=== PATIENT | female | born 1960 | race Caucasian/White ===

== ENCOUNTER 2022-04-24 09:47 | Outpatient (CLI) | payer OTHER, SELFPAY ==
[2022-04-24 12:28] LABS: Albumin* 4.5 g/dL (3.3-5.0); Chloride* 103 mmol/L (96-114); Sodium* 139 mmol/L (135-149)
[2022-04-24 12:29] LABS: Potassium* 4.1 mmol/L (3.6-5.1)
[2022-04-24 12:31] LABS: Alanine Aminotransferase* 30 U/L (4-35); Alkaline Phosphatase* 84 U/L (40-150); Aspartate Amino Transferase* 44 U/L (12-35); Bilirubin Total* 0.7 mg/dL (0.1-1.5); Blood Urea Nitrogen* 18 mg/dL (7-30); Carbon Dioxide* 28 mmol/L (20-32); Creatinine* 0.7 mg/dL (0.5-1.5); Estimated Glomerular Filt Rate 100 ml/min; Glucose* 105 mg/dL (60-115); Total Protein* 7.5 g/dL (6.0-8.3)
[2022-04-24 12:32] LABS: Calcium* 9.7 mg/dL (8.4-10.6)
== END 2022-04-24 09:48 | disposition home or self-care (01) ==
PROVIDERS: PCP Internal Medicine; Visit Provider Internal Medicine
DX: Z01.818 Encounter for other preprocedural examination (principal)
CPT/HCPCS: 80053

== ENCOUNTER 2022-05-07 09:14 | Day surgery (SDC) | payer OTHER, SELFPAY ==
[2022-05-07] VITALS (16 sets, daily range): BP systolic 105–139; BP diastolic 56–84; PULSE 56–86; RESP 12–16; TEMP 35–36.6; O2SAT 92–99; BMI 32.3
[2022-05-07] MEDS: LACTATED RINGERS 1000 ML 1,000 ML 100 ML IV (10:00)
[2022-05-07] MEDS: ETHYL CHLORIDE 1 APPLICATION 1 APPLIC TOPICAL (10:00)
[2022-05-07] MEDS: SODIUM CHLORIDE 0.9 % (FLUSH) 10 ML SYRINGE IVF (10:12)
[2022-05-07] MEDS: SCOPOLAMINE 1 MG/3 DAY PATCH 1 PATCH TRANSDERMA (10:15)
[2022-05-07] MEDS: CELECOXIB 200 MG CAPSULE PO ×2 (11:30→20:09)
[2022-05-07] MEDS: ACETAMINOPHEN 500 MG TABLET 1000 MG PO ×3 (11:30→23:06)
[2022-05-07] MEDS: MIDAZOLAM HCL 1 MG/ML inj IVP (11:35)
[2022-05-07] MEDS: fentaNYL 100 MCG/2 ML inj IVP (11:35)
--- NOTE | 2022-05-07 11:41 | P.NB_ITS ---
Nerve Block Nerve Block Time Seen by Provider: 11:41 Date Seen: 05/07/22 Type of block requested by surgeon for post-operative analgesia: adductor canal Side: right Time out performed: Yes Verification of patient name: Yes Verification of date of : Yes Site marking: site marked Name of person performing procedure: Sameer Continuous monitoring Was continuous monitoring of O2 sat, B/P, surveillance system monitor, recorded every 15 minutes?: Yes Procedure Checklist: sterile prep, needles and gloves Ultrasound guided. Images saved: Yes Medications given in 5ml increments after negative aspiration: Ropivicaine %: 0.5 mL: 20 Needle gauge: 22 Decadron (mg): 10 Precedex (mcg): 25 Patient tolerated procedure well: Yes Additional comments: Needle noted adjacent to nerve Block Charges Block Charge (with Pro Fee): Femoral Nerve Use of Ultrasound Machine for Block: Yes- US Guidance/pain block
--- NOTE | 2022-05-07 11:42 | P.NB_ITS ---
Nerve Block Nerve Block Time Seen by Provider: 11:42 Date Seen: 05/07/22 Type of block requested by surgeon for post-operative analgesia: geniculars Side: right Time out performed: Yes Verification of patient name: Yes Verification of date of : Yes Site marking: site marked Name of person performing procedure: Sameer Continuous monitoring Was continuous monitoring of O2 sat, B/P, food service counter clerk, recorded every 15 minutes?: Yes Procedure Checklist: sterile prep, needles and gloves Medications given in 5ml increments after negative aspiration: Ropivicaine %: 0.5 mL: 9 Needle gauge: 25 Patient tolerated procedure well: Yes Block Charges Block Charge (with Pro Fee): Genicular Nerve Block Use of Ultrasound Machine for Block: No
--- NOTE | 2022-05-07 11:42 | SUR.PREOP ---
TIME?OUT:?1132, right knee PT/RN/MDA?VERIFICATION?OF?SURGICAL?SITE,?PROCEDURE,?AND?CONSENT OBTAINED?PRIOR?TO?INVASIVE?PROCEDURE.
[2022-05-07] MEDS: CEFAZOLIN 2 GM INJ IVP (12:30)
[2022-05-07] MEDS: TRANEXAMIC ACID 100 MG/ML INJ 1000 MG IV (12:30)
--- NOTE | 2022-05-07 13:53 | CRLHL7_ITS ---
For Patients: As a result of the Century Cures Act, medical imaging exams and procedure reports are released immediately into your electronic medical record. You may view this report before your referring provider. If you have questions, please contact your health care provider. Indication: Status post total knee arthroplasty. Technique: Two views. Comparison: Knee radiograph 04/04/2022. Findings/Impression: Status post total knee arthroplasty. Prosthesis components are well aligned. No fracture. Subcutaneous gas. No radiopaque foreign body. Dictated by Sergey Hall MD @ 05/07/2022 9:27:22 PM (Electronically Signed)
--- NOTE | 2022-05-07 13:56 | PM.ORPRC ---
Procedure Note Date of procedure: 05/07/22 Procedure: SURGEON: Yves Vee MD [employer] INSTRUMENTS: Frieda Dukes PA-C PREOPERATIVE DIAGNOSIS: Right knee osteoarthritis POSTOPERATIVE DIAGNOSIS: Right knee osteoarthritis NAME OF OPERATION: Right total knee arthroplasty ANESTHESIA: Spinal ESTIMATED BLOOD LOSS: 0 mL COMPLICATIONS: None SPECIMENS: None DRAINS: None PREOPERATIVE ANTIBIOTICS: Ancef 2 grams IMPLANTS: 1. J&J Attune # 4 posterior stabilized femur 2. # 3 fixed-bearing tibia 3. # 4 posterior stabilized, 5 mm fixed-bearing polyethylene 4. 35 patella INDICATIONS: The patient is a 61-year-old female with a longstanding history of severe, unrelenting right knee pain secondary to end-stage (grade IV) right knee osteoarthritis. Despite appropriate nonoperative management, including activity modification, anti-inflammatories, [id number] pain medication, bracing, physical therapy, and injections they continue to have pain and disability. Operative intervention was offered. The risks, benefits and expected outcomes were discussed in detail. These included but were not limited to: Infection, bleeding, injury to blood vessel or nerve, venous thromboembolism. All questions were answered to their satisfaction. Use of an clerical dentist assistant was necessary throughout the case for patient positioning and safety, soft tissue retraction, and closure. PROCEDURE: Spinal anesthesia was administered. The patient was placed supine on the operating table. The clerical dentist assistant made sure the patient was positioned appropriately. The lower extremity was prepped and draped in the usual sterile fashion. The limb was exsanguinated with the Jarrett bandage. The pneumatic tourniquet was inflated to 300 mmHg. A standard anterior incision was made with the knee in flexion. Subcutaneous dissection was sharply taken through fascial layer #1. Full-thickness medial and lateral flaps were elevated. The clerical dentist assistant retracted the soft tissues and protected them throughout the case. A standard medial parapatellar approach was made. The patella was everted. The infrapatellar fat pad was preserved. The menisci and cruciate ligaments were sharply d?brided. Marginal osteophytes were d?brided with the rongeur. The drill was used to penetrate the femoral canal. The canal was aspirated and irrigated with pulse lavage. The intramedullary femoral guide was placed for a 5-degree valgus cut, removing 10 mm off the distal femur. The saw was used to make the cut. Whitesides line and the trans epicondylar axis were marked. The femoral sizing guide was pinned onto the distal femur. Three degrees of external rotation nicely parallels the transepicondylar axis. Pins were placed for posterior referencing. The four-in-one cutting guide was pinned onto the distal femur. The anterior, posterior, and chamfer cuts were made. The clerical dentist assistant protected the collateral ligaments. The box cutting guide was pinned. The box cuts were made. The boxed trial was placed and was an excellent fit. Drill holes for the lugs were made. Attention was then turned to the proximal tibia. The extramedullary tibial guide was placed for a neutral varus/valgus cut with 5 degrees of posterior slope, removing 4 mm based off the medial tibial surface. The clerical dentist assistant protected the collateral ligaments and the neurovascular bundle. The saw was used to make the cut. Trial components were placed. The knee was nicely balanced in both flexion and extension. Rotation of the tibial component was matched to the femur in full extension, matched to our tibial cutting pins, and marked with cautery. The trial components were removed. The tray was pinned by the clerical dentist assistant and the drill and the punch were used. The tray was removed. The punch was used again. We placed a bone plug in the femoral canal. Attention was then turned to the patella. [place] patellar thickness was 21 mm. The lobster claw resection guide was used with the 7.5 mm silvia. The saw was used to make the cut. Drill holes were made by the clerical dentist assistant. The trial was placed and was an excellent fit. Cancellous surfaces were irrigated with pulse lavage and thoroughly dried by the clerical dentist assistant. We cemented the tibial component, then the femoral component. A trial spacer was placed. The knee was brought into full extension. We then cemented the patellar component. Excessive cement was removed. The cement was allowed to harden. Any remaining excessive cement was removed with the osteotome. We impacted the 5 mm polyethylene onto the tibial tray. The knee was taken through a range of motion and was found to be nicely balanced in both flexion and extension. The patella tracks centrally. The clerical dentist assistant did a three minute dilute Betadine solution soak. The clerical dentist assistant irrigated the wound with 3 liters of normal saline via pulse lavage. The clerical dentist assistant reapproximated the extensor mechanism with #1 Vicryl in an interrupted [id number] fashion. The clerical dentist assistant then ran the extensor mechanism with a #1 PDO Stratafix. The clerical dentist assistant closed the subcutaneous tissues with a 3-0 Stratafix and the skin with a running 3-0 Stratafix in a subcuticular fashion. Glue was used to seal the skin. The clerical dentist assistant placed a dry dressing, FANNIE stocking, and Polar Care. Sponge and needle counts were correct x2. The patient tolerated the procedure well. There were no apparent complications. They were carefully transferred to the hospital bed and taken to the postanesthesia care unit in satisfactory condition. PLAN: The patient will be mobilized with physical therapy. Aspirin will be used for DVT prophylaxis. They will be discharged to home once medically appropriate.
--- NOTE | 2022-05-07 14:46 | W.ANESCHARGE ---
Anesthesia Charges Start Date/Time Anesthesia Start Date: 05/07/22 Anesthesia Start Time: 12:19 Stop Date/Time Anesthesia Stop Date: 05/07/22 Anesthesia Stop Time: 14:45 Summary Emergency: No
--- NOTE | 2022-05-07 15:07 | W.ANESCHARGE ---
Anesthesia Charges Start Date/Time Anesthesia Start Date: 05/07/22 Anesthesia Start Time: 12:19 Stop Date/Time Anesthesia Stop Date: 05/07/22 Anesthesia Stop Time: 14:45 Summary Emergency: No
[2022-05-07] MEDS: CEFAZOLIN 2 GM in 0.9 % SODIUM CHLORIDE Mini-bag 100 ML IVPB (18:33)
--- NOTE | 2022-05-07 18:46 | P.IMCN_ITS ---
Date of Consult Consult date: 05/07/22 Primary Care Provider: Keiry Myers MD Consult Narrative Reason for consult: Narrative: HOSPITALIST CONSULT Hospital Day # 1 Postop Day #0 NAME OF OPERATION: Right total knee arthroplasty ANESTHESIA: Spinal ESTIMATED BLOOD LOSS: 0 mL COMPLICATIONS: None SPECIMENS: None DRAINS: None The hospital medicine team was asked by orthopedic surgery team to manage the patient's chronic pain PAST MEDICAL HISTORY: Chronic low back pain History of gestational diabetes MEDICATIONS: Albuterol p.r.n. Calcium and vitamin-D Multivitamin Turmeric ALLERGIES: Erythromycin, codeine SURGICAL HISTORY: Basal cell carcinoma excision History of hip surgery 2017 History of tonsillectomy History of total left knee replacement, 03/27/2016 FAMILY HISTORY: Reviewed in EMR HABITS: Distant social smoker Wine 2 to 4 times a month SOCIAL HISTORY: Works as an occupational therapist on our team REVIEW OF SYSTEMS: 12-point ROS completed with patient and negative unless otherwise stated in HPI or below. PHYSICAL EXAM: CODE STATUS: Full code CONSTITUTIONAL: Conversive, good historian. A/O. Knows setting and context. VITAL SIGNS: see record. HEENT: Normocephalic, atraumatic. PERRL, EOMI, conjunctivae pink, no scleral icterus. Ears and nose externally normal. Pharynx normal. NECK: No JVD. No carotid bruit, no thyromegaly, no adenopathy. CHEST: Clear to auscultation bilaterally HEART: No harsh murmurs. S1/S2. ABDOMEN: Flat, soft, nontender. Normal bowel sounds. Moderately obese. EXTREMITIES: No edema. MUSCULOSKELETAL: Right knee surgical dressing intact without seepage. Distal right extremity without footdrop. NEURO: Cranial nerves intact. Normal affect. No gross deficits. Speech intelligible. SKIN: No rashes, petechiae, concerning changes PSYCHIATRIC: Euthymic. INVESTIGATIONS: EMR Reviewed DISPOSITION: DVT: GI: PO intake [facility] Medical History (Updated 04/24/22 @ 09:41 by Keiry Myers MD) History of gestational diabetes mellitus (GDM) (04/25/10) Surgical History (Updated 05/07/22 @ 19:24 by Loan Perkins MD) Basal cell carcinoma (BCC) (~2012) History of hip surgery (02/05/17) History of tonsillectomy History of total left knee replacement (03/27/16) Status post total right knee replacement Family History (Updated 04/19/22 @ 15:28 by Uyen Varner RN) Mother Diabetes High blood pressure Skin cancer Father Skin cancer High blood pressure Brother Meniere disease Maternal Grandfather Stroke Social History Smoking Status: Former smoker What tobacco products do you use: cigarettes Smoking quit date/years: >15 years ago Do you use any of these nicotine containing products: None Second hand tobacco smoke exposure: No How often do you have a drink containing alcohol: 2-4 times a month Alcohol type: wine How many standard drinks containing alcohol do you have on a typical day: 1 or 2 How often do you have six or more drinks on one occasion: Never AUDIT-C Alcohol total score: 2 Non-prescribed substance use: denies use Meds Home Medications and Allergies Home Medications Medication Instructions Recorded Confirmed Type albuterol sulfate 90 mcg/actuation 2 puff inhalation Q6H PRN 04/02/22 05/07/22 History aerosol inhaler (Ventolin HFA) calcium carb-vit D3-magnesium 250 1 cap PO QDAY 04/02/22 05/07/22 History mg-200 unit-125 mg capsule multivitamin 1 tab PO QDAY 04/02/22 05/07/22 History turmeric 400 mg capsule 400 mg PO DAILY 04/24/22 05/07/22 History Allergies Allergy/AdvReac Type Severity Reaction Status Date / Time erythromycin base AdvReac Severe Gastrointestinal Verified 05/07/22 09:27 Upset codeine AdvReac Intermediate Nausea Verified 05/07/22 09:27 Exam Const: Vital Signs, click to edit/add: Vital Signs - 24 hr 05/07/22 09:49 05/07/22 11:35 05/07/22 11:45 Temperature 97.8 F 97.8 F Pulse Rate 64 56 L 62 Respiratory Rate 16 16 16 Blood Pressure 136/77 139/58 L 119/56 L Blood Pressure [Ri ght Arm] Pulse Oximetry 99 99 98 Oxygen Delivery Me thod Room Air Nasal Cannula Nasal Cannula Oxygen Flow Rate 3 3 05/07/22 14:42 05/07/22 14:45 05/07/22 14:50 Temperature 96.8 F L Pulse Rate 72 68 64 Respiratory Rate 14 12 16 Blood Pressure 108/67 105/65 112/72 Blood Pressure [Ri ght Arm] Pulse Oximetry 92 93 93 Oxygen Delivery Me thod Room Air Room Air Room Air Oxygen Flow Rate 05/07/22 14:55 05/07/22 15:00 05/07/22 15:05 Temperature Pulse Rate 66 64 60 Respiratory Rate 12 14 14 Blood Pressure 117/76 123/78 120/78 Blood Pressure [Ri ght Arm] Pulse Oximetry 94 96 97 Oxygen Delivery Me thod Room Air Room Air Room Air Oxygen Flow Rate 05/07/22 15:10 05/07/22 15:15 05/07/22 15:25 Temperature 97 F L 95 F L Pulse Rate 58 L 62 60 Respiratory Rate 16 15 14 Blood Pressure 125/72 129/73 Blood Pressure [Ri ght Arm] 130/80 Pulse Oximetry 97 98 Oxygen Delivery Me thod Room Air Room Air Room Air Oxygen Flow Rate 0 Assessment and Plan Assessment and plan (1) Status post total right knee replacement: Status: Acute Assessment and Plan: Hospital medicine team is happy to follow this patient through to discharge. I reviewed her medications advised on these. I expect a benign postoperative course and have appreciated no perioperative concerns or complications thus far (2) Chronic low back pain: Problem comment: Chronic, lumbar pain Status: Acute Assessment and Plan:
[2022-05-07] MEDS: LACTATED RINGERS 1000 ML 1,000 ML 75 ML IV (19:35)
[2022-05-07] MEDS: OXYCODONE 5 MG TABLET PO ×2 (19:35→23:05)
--- NOTE | 2022-05-07 20:06 | PC.NURSE ---
Patient up to floor at 1525 awake and alert. numb upon arrival. Dahlia Hugger applied at 1530 due to temp 95.0- removed at 1700 with 96.9 temp when up to chair. Vitals stable. Pt meeting post op goals - pt has voided x2. up to BSC, transferred to chair with Ax1. Tolerating regular diet and taking oral meds. 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 Chaim at bedside and supportive. TEDS on, Plexi's. surgical incision CDI. LS CTA. Pt to work on IS independently.
[2022-05-07] MEDS: ASPIRIN 81 MG TABLET EC PO (20:09)
[2022-05-07] MEDS: SENNOSIDES 1 TAB TABLET 2 TAB PO (20:09)
[2022-05-08 02:00] VITALS: BP 116/59; PULSE 71; RESP 14; TEMP 36; O2SAT 95
[2022-05-08] MEDS: OXYCODONE 5 MG TABLET PO ×3 (02:10→10:26)
[2022-05-08] MEDS: CEFAZOLIN 2 GM in 0.9 % SODIUM CHLORIDE Mini-bag 100 ML IVPB ×2 (02:10→09:50)
[2022-05-08] MEDS: ACETAMINOPHEN 500 MG TABLET 1000 MG PO (05:25)
[2022-05-08] MEDS: LACTATED RINGERS 1000 ML 1,000 ML 75 ML IV (06:03)
--- NOTE | 2022-05-08 06:05 | PC.NURSE ---
Alert and oriented x4. Vitals stable overnight. Right knee pain pain managed with Oxycodone. Dressing CDI. Ambulates fine to the bathroom with assist of one. Voiding fine and denies any concerns. Will continue to monitor and assess
[2022-05-08 07:19] LABS: Basophils Percent Auto 0.1 % (0.0-3.0); Hematocrit 40.5 % (33.0-51.0); Hemoglobin* 13.3 gm/dL (12.0-16.0); Immature Granulocytes Abs Auto 0.02 K/uL (0.00-0.30); Lymphocytes Percent Auto 10.5 % (20-44); Mean Corpuscular HGB Conc 33 gm/dL (32-36); Mean Corpuscular Hemoglobin 31 pg (26-34); Mean Corpuscular Volume 94 fL (80-100); Monocytes Percent Auto 6.8 % (0.0-11.0); Neutrophils Percent Auto 82.5 % (42.0-72.0); Platelet Count* 337 K/uL (140-440); RDW Coefficient of Variation % 13.6 % (11.5-15.5); Red Blood Count 4.29 m/uL (4.00-5.20); White Blood Count* 14.46 K/uL (4.50-11.00)
[2022-05-08 07:23] LABS: Slide Review Reflex No
[2022-05-08 07:31] LABS: Potassium* 4.3 mmol/L (3.6-5.1)
[2022-05-08 07:34] LABS: Blood Urea Nitrogen* 16 mg/dL (7-30); Creatinine* 0.7 mg/dL (0.5-1.5); Est. Creatinine Clearance* 77.87; Estimated Glomerular Filt Rate 100 ml/min
[2022-05-08 07:35] LABS: INR 0.91 (0.91-1.10); Prothrombin Time 12.7 Seconds
[2022-05-08 07:43] VITALS: BP 122/71; PULSE 60; RESP 16; TEMP 36.1; O2SAT 99
--- NOTE | 2022-05-08 07:56 | REH.OT ---
OT: Orders received, however pt declining the need for OT services per nsg and prior to surgery. Pt is an OT, has had prior TKA and familiar with post op protocol and DME needs. Will discontinue order.
[2022-05-08] MEDS: ASPIRIN 81 MG TABLET EC PO (07:57)
[2022-05-08] MEDS: SENNOSIDES 1 TAB TABLET 2 TAB PO (07:57)
[2022-05-08] MEDS: CELECOXIB 200 MG CAPSULE PO (07:58)
--- NOTE | 2022-05-08 08:20 | PM.ORPN ---
Subjective Subjective Time Seen by Provider: 08:00 Date Seen: 05/08/22 Principal diagnosis: Status post right knee replacement Interval history: Francheska is comfortable this morning. She got little rest last night. She does not have nausea or vomiting. She is planning to discharge to home today. Ortho Exam Narrative Exam Narrative: Alert and oriented x3. Patient is in no acute distress. Converses without labored breathing. Hearing is grossly intact. Right knee dressing is clean, dry, and intact. Mild effusion. Mild soft tissue edema about the right knee. No erythema or ecchymosis. No sign of infection. Bilateral calves are soft and nontender. 5/5 quad strength. CMS intact right lower extremity. Const Vital Signs, click to edit/add: Vital Signs - 24 hr 05/07/22 09:49 05/07/22 11:35 05/07/22 11:45 Temperature 97.8 F 97.8 F Pulse Rate 64 56 L 62 Pulse Rate [Left Pulse Oximeter] Respiratory Rate 16 16 16 Blood Pressure 136/77 139/58 L 119/56 L Blood Pressure [Right Arm] Pulse Oximetry 99 99 98 Oxygen Delivery Method Room Air Nasal Cannula Nasal Cannula Oxygen Flow Rate 3 3 05/07/22 14:42 05/07/22 14:45 05/07/22 14:50 Temperature 96.8 F L Pulse Rate 72 68 64 Pulse Rate [Left Pulse Oximeter] Respiratory Rate 14 12 16 Blood Pressure 108/67 105/65 112/72 Blood Pressure [Right Arm] Pulse Oximetry 92 93 93 Oxygen Delivery Method Room Air Room Air Room Air Oxygen Flow Rate 05/07/22 14:55 05/07/22 15:00 05/07/22 15:05 Temperature Pulse Rate 66 64 60 Pulse Rate [Left Pulse Oximeter] Respiratory Rate 12 14 14 Blood Pressure 117/76 123/78 120/78 Blood Pressure [Right Arm] Pulse Oximetry 94 96 97 Oxygen Delivery Method Room Air Room Air Room Air Oxygen Flow Rate 05/07/22 15:10 05/07/22 15:15 05/07/22 15:25 Temperature 97 F L 95 F L Pulse Rate 58 L 62 60 Pulse Rate [Left Pulse Oximeter] Respiratory Rate 16 15 14 Blood Pressure 125/72 129/73 Blood Pressure [Right Arm] 130/80 Pulse Oximetry 97 98 Oxygen Delivery Method Room Air Room Air Room Air Oxygen Flow Rate 0 05/07/22 19:00 05/07/22 20:00 05/07/22 21:00 Temperature 96.8 F L 96.8 F L 96.8 F L Pulse Rate Pulse Rate [Left Pulse Oximeter] 79 86 80 Respiratory Rate 14 14 14 Blood Pressure Blood Pressure [Right Arm] 126/72 123/71 125/67 Pulse Oximetry 97 94 94 Oxygen Delivery Method Room Air Room Air Room Air Oxygen Flow Rate 05/07/22 22:00 05/08/22 02:00 05/08/22 07:43 Temperature 96.8 F L 96.8 F L 96.9 F L Pulse Rate Pulse Rate [Left Pulse Oximeter] 71 60 Respiratory Rate 14 14 16 Blood Pressure Blood Pressure [Right Arm] 122/84 116/59 L 122/71 Pulse Oximetry 94 95 99 Oxygen Delivery Method Room Air Room Air Room Air Oxygen Flow Rate 0 0 Assessment and Plan Assessment and plan (1) Status post total right knee replacement: Problem details: Date of surgery 05/07/2022 Status: Acute Assessment and Plan: Plan for discharge is today to home if they meet discharge criteria. DVT prophylaxis includes aspirin 81 mg twice daily x1 month, Janak stockings x1 month may remove for 1 hr per day, frequent ambulation Remove dressing in 1 week. Observe wound and phone Orthopedics with any questions or concerns Return to clinic in 1 week for a wound check with Frieda Return to clinic in [address] Vee Minimize narcotic use. Wean off and discontinue soon as possible. Activities as tolerated. No strenuous activity. Outpatient physical therapy as scheduled. Ice and elevate the operative extremity. No restriction on ice. (2) Chronic low back pain: Problem details: Chronic, lumbar pain Status: Acute
[2022-05-08 10:31] VITALS: BP 125/65; PULSE 55; RESP 16; TEMP 36.3; O2SAT 99
--- NOTE | 2022-05-08 10:45 | PC.NURSE ---
Discharged: Patient was discharged home with spouse. VS were within normal limits. Pain tolerable on PO meds. Patient ambulating with assist of 1 and gaitbelt and walker. Tolerating a regular diet. Voiding without difficulty. Has not had a BM but taking stool softeners. Incision is clean dry and intact. CWMS within normal limits. Presciptions sent to pharmacy and patients picked up. Patient has f/u with ortho scheduled. All questions answered and patient left via wheelchair with .
--- NOTE | 2022-05-15 07:21 | P.DS_ITS ---
DS: Providers Provider Time Seen by Provider: 10:00 Date Seen: 05/08/22 Date of admission: 04/18/2022 Primary care physician: Keiry Myers MD Admitting Clinician: Yves Vee MD Consults: 05/07/22 16:33 Consult to Physical Therapy [CONS] Routine Comment: Ambulate in the [place] today. Reason(s) for PT Consult:: TKA TX Protocol POD#0 Any Restrictions?:: See Comment Comment: See nursing activity order for any restrictions. Consult to Physician [CONS] Routine Comment: Consulting Provider: Hospitalists Has provider been notified: No Consult to Architectural Wood Model Maker [CONS] Routine Comment: Reason for Consult:: Discharge Planning Needs Attending Physician on discharge: Yves Vee MD Date of Discharge: 05/08/22 DS: Diagnosis Discharge Diagnosis (1) Osteoarthritis of right knee: Status: Acute (2) Status post total right knee replacement: Status: Acute Problem details: Date of surgery 05/07/2022 (3) Chronic low back pain: Status: Acute Problem details: Chronic, lumbar pain DS: Summary Hospital Course Hospital Course: 61-year-old woman with end-stage right gonarthrosis admitted for elective right total knee arthroplasty. This is undertaken successfully. No complications. Status at Discharge Functional status at discharge: uses cane/walker Overall status at discharge: patient is progressing back to baseline Time Spent with Patient Time attestation: Total time spent providing and/or coordinating discharge services: Time spent: Less than 30 minutes Exam Narrative: Exam Narrative: Alert, oriented to person, place, time, situation. Cooperative, friendly, articulate. Mood and affect are congruent. Lungs are clear to auscultation. Heart tones with regular rhythm. Abdomen benign. No focal motor neurologic deficits. Const: Documenting provider has reviewed patient's vital signs: yes Discharge Plan Discharge Disposition: Home, Self-Care Discharging Surgeon: Yves Vee Follow-Up Appointment: 7-10 days for wound check with RADHA, [address] Vee Prescriptions: New aspirin 81 mg Tablet,Delayed Release (Dr/Ec) 81 mg PO BID 30 Days Qty: 60 0RF Rx Instructions: For DVT prophylaxis sennosides [Senna Lax] 8.6 mg Tablet 17.2 mg PO BID PRN (Reason: constipation) Qty: 100 0RF acetaminophen 500 mg Tablet 500 - 1,000 mg PO Q6H MDD 4000 mg per day PRN (Reason: pain) Qty: 100 0RF oxycodone 5 mg Tablet 2.5 - 5 mg PO Q4-6H MDD 6 tabs per day PRN (Reason: Pain) Qty: 42 0RF Rx Instructions: Minimize. Discontinue as soon as possible Continued albuterol sulfate [Ventolin HFA] 90 mcg/actuation HFA aerosol inhaler 2 puff inhalation Q6H PRN calcium carb-vit D3-magnesium 250-200-125 mg-unit-mg capsule 1 cap PO QDAY multivitamin Tablet 1 tab PO QDAY turmeric 400 mg capsule 400 mg PO DAILY Activity Level: Activity as Tolerated and Weight Bearing as Tolerated Activity Detail: Keep dressing on for 1 week. Dressing is waterproof. May shower. Surgical glue covers the wound. Attend outpatient physical therapy if scheduled. Ice operative extremity without restriction. Wear compression stockings for 1 month post surgery. May remove for 1 hour per day. Ambulate every hour throughout the day. Do not drive while taking narcotic pain medication. Do not drink alcohol while taking narcotic pain medication. May drive when safe to do so and have full function of the extremities, this may take 6 weeks or more. Notify Orthopedics with any questions or concerns. ([phone]) Discharge Diet: Regular Patient Instructions: Acetaminophen (By mouth), Aspirin (By mouth), Oxycodone, Rapid Release (By mouth), Senna (By mouth), Knee Replacement (DC) Forms: Work/Release Restrictions Follow-up: Frieda Dukes PA-C [Physician Intermediate Designer] - 05/15/22 1:00 pm (At the [facility].) Keiry Myers MD [Primary Care Provider] - (Patient can call and schedule an appointment as needed.) Discharge Orders: Discharge Order (Routine); Ordered 05/08/22 Ordered By: Anibal Terry
== END 2022-05-08 10:40 | disposition home or self-care (01) ==
LOC: OR 09:15 → MEDSURG 14:48
PROVIDERS: PCP Internal Medicine; Visit Provider Orthopaedic Surgery
PROC: (CPT 27447; principal; 2022-05-07 12:00)
DX: M17.11 Unilateral primary osteoarthritis, right knee (principal); M54.50 Low back pain, unspecified; G89.29 Other chronic pain; Z86.32 Personal history of gestational diabetes
CPT/HCPCS: 27447; 01402; 36415; 64447; 64454; 73560; 76942; 82565; 84132; 84295; 84520; 85025; 85610; 97110; 97116; 97161; 97530; A9270; C1776; J0690; J1100; J2250; J2795; J3010; J7120

== ENCOUNTER 2022-06-07 12:53 | Outpatient (CLI) | payer OTHER, SELFPAY | END 2022-06-07 12:54 | disposition home or self-care (01) | LOC: RAD 12:54 | PROVIDERS: PCP Internal Medicine; Visit Provider Internal Medicine | DX: I42.2 Other hypertrophic cardiomyopathy (principal); Z82.49 Family history of ischemic heart disease and other diseases of the circulatory system | CPT/HCPCS: 93306 ==

== ENCOUNTER 2022-07-09 07:40 | Outpatient (CLI) | payer OTHER, SELFPAY ==
--- NOTE | 2022-07-09 07:45 | CRLHL7_ITS ---
For Patients: As a result of the Cures Act, medical imaging exams and procedure reports are released immediately into your electronic medical record. You may view this report before your referring provider. If you have questions, please contact your health care provider. BILATERAL SCREENING MAMMOGRAM WITH COMPUTER-AIDED DETECTION AND TOMOSYNTHESIS TECHNIQUE: CC and MLO views were obtained. These mammographic images have been obtained using full-field digital technique. These mammographic images were interpreted with the benefit of computer-aided detection. Breast Tomosynthesis was used in this interpretation. COMPARISON FILM: 10/27/20, 10/02/19, 08/23/17. FINDINGS: There are scattered areas of fibroglandular density IMPRESSION: There is no radiographic evidence for malignancy. ASSESSMENT: BI-RADS Category 1: Negative RECOMMENDATION: Routine screening mammogram in 1 year. A lay language report of this examination will be provided to the patient. Leobardo Eric M.D. Diagnostic Radiologist [email or web address] WYATT/nimesh / be/Dictated by: Leobardo Eric MD @ 07/09/2022 12:10:00 PM (Electronically Signed)
== END 2022-07-09 07:41 | disposition home or self-care (01) ==
PROVIDERS: PCP Internal Medicine; Visit Provider Internal Medicine
DX: Z12.31 Encounter for screening mammogram for malignant neoplasm of breast (principal)
CPT/HCPCS: 77063; 77067

== ENCOUNTER 2022-07-12 14:30 | Outpatient (RCR) | payer OTHER, SELFPAY | END 2022-08-14 09:20 | disposition home or self-care (01) | PROVIDERS: PCP Internal Medicine; Visit Provider Orthopaedic Surgery | DX: Z96.651 Presence of right artificial knee joint (principal); Z51.89 Encounter for other specified aftercare; Z79.899 Other long term (current) drug therapy | CPT/HCPCS: 97032; 97110; 97112; 97140; 97161; A9270; J0690; J1100; J2370; J2405; J2704 ==

== ENCOUNTER 2023-07-29 12:53 | Outpatient (CLI) | payer OTHER, SELFPAY ==
--- NOTE | 2023-07-29 13:00 | CRLHL7_ITS ---
For Patients: As a result of the Century Cures Act, medical imaging exams and procedure reports are released immediately into your electronic medical record. You may view this report before your referring provider. If you have questions, please contact your health care provider. BILATERAL SCREENING MAMMOGRAM WITH COMPUTER-AIDED DETECTION AND TOMOSYNTHESIS TECHNIQUE: CC and MLO views were obtained. These mammographic images have been obtained using full-field digital technique. These mammographic images were interpreted with the benefit of computer-aided detection. Breast Tomosynthesis was used in this interpretation. COMPARISON FILM: 07/09/22, 10/27/20, 10/02/19. FINDINGS: There are scattered areas of fibroglandular density IMPRESSION: There is no radiographic evidence for malignancy. ASSESSMENT: BI-RADS Category 1: Negative RECOMMENDATION: Routine screening mammogram in 1 year. A lay language report of this examination will be provided to the patient. Leobardo Eric M.D. Diagnostic Radiologist [email or web address] DON/Dictated by: Leobardo Eric MD @ 07/30/2023 9:12:00 AM (Electronically Signed)
== END 2023-07-29 12:54 | disposition home or self-care (01) ==
LOC: MAMMO 12:54
PROVIDERS: PCP Internal Medicine; Visit Provider Internal Medicine
DX: Z12.31 Encounter for screening mammogram for malignant neoplasm of breast (principal)
CPT/HCPCS: 77063; 77067

== ENCOUNTER 2023-08-16 12:57 | Outpatient (CLI) | payer OTHER, SELFPAY | END 2023-08-16 12:58 | disposition home or self-care (01) | LOC: LKVREF 13:03 | PROVIDERS: PCP Internal Medicine; Visit Provider Nurse Practitioner Family | DX: L03.90 Cellulitis, unspecified (principal) | CPT/HCPCS: 87070; 87186; 87205 ==

== ENCOUNTER 2023-08-30 09:09 | Outpatient (CLI) | payer OTHER, SELFPAY | END 2023-08-30 09:10 | disposition home or self-care (01) | LOC: NFLDREF 09-01 21:37 | PROVIDERS: PCP Internal Medicine; Referring Provider Internal Medicine; Visit Provider Internal Medicine | DX: Z13.220 Encounter for screening for lipoid disorders (principal) | CPT/HCPCS: 80061 ==

== ENCOUNTER 2024-08-27 13:55 | Outpatient (CLI) | payer OTHER, SELFPAY ==
--- NOTE | 2024-08-27 14:00 | CRLHL7_ITS ---
For Patients: As a result of the Century Cures Act, medical imaging exams and procedure reports are released immediately into your electronic medical record. You may view this report before your referring provider. If you have questions, please contact your health care provider. BILATERAL SCREENING MAMMOGRAM WITH COMPUTER-AIDED DETECTION AND TOMOSYNTHESIS TECHNIQUE: CC and MLO views were obtained. These mammographic images have been obtained using full-field digital technique. These mammographic images were interpreted with the benefit of computer-aided detection. Breast Tomosynthesis was used in this interpretation. COMPARISON FILM: 07/29/23, 07/09/22, 10/27/20. FINDINGS: There are scattered areas of fibroglandular density. IMPRESSION: There is no radiographic evidence for malignancy. ASSESSMENT: BI-RADS Category 1: Negative RECOMMENDATION: Routine screening mammogram in 1 year. A lay language report of this examination will be provided to the patient. Leobardo Eric M.D. Diagnostic Radiologist [email or web address] SP/Dictated by: Leobardo Eric MD @ 08/28/2024 12:31:00 PM (Electronically Signed)
== END 2024-08-27 13:56 | disposition home or self-care (01) ==
LOC: MAMMO 13:56
PROVIDERS: PCP Internal Medicine; Visit Provider Internal Medicine
DX: Z12.31 Encounter for screening mammogram for malignant neoplasm of breast (principal)
CPT/HCPCS: 77063; 77067

== ENCOUNTER 2025-01-18 15:30 | Outpatient (RCR) | payer OTHER, SELFPAY | END 2025-03-30 15:12 | disposition home or self-care (01) | PROVIDERS: PCP Internal Medicine; Visit Provider Orthopaedic Surgery | DX: M70.72 Other bursitis of hip, left hip (principal); Z51.89 Encounter for other specified aftercare | CPT/HCPCS: 97110; 97140; 97161 ==

== ENCOUNTER 2025-02-04 10:28 | Day surgery (SDC) | payer OTHER, SELFPAY ==
[2025-02-04] VITALS (11 sets, daily range): BP systolic 94–144; BP diastolic 54–82; PULSE 60–76; RESP 16; TEMP 36.2–36.6; O2SAT 96–99; BMI 34.7
[2025-02-04] MEDS: SCOPOLAMINE 1 MG/3 DAY PATCH 1 PATCH TRANSDERMA (11:00)
[2025-02-04] MEDS: LACTATED RINGERS 1000 ML 1,000 ML 100 ML IV (11:00)
[2025-02-04] MEDS: SODIUM CHLORIDE 0.9 % (FLUSH) 10 ML SYRINGE IVF (11:15)
--- NOTE | 2025-02-04 11:49 | P.ANES_ITS ---
Anesthesia Charges Start Date/Time Anesthesia Start Date: 02/04/25 Anesthesia Start Time: 11:37 Stop Date/Time Anesthesia Stop Date: 02/04/25 Anesthesia Stop Time: 12:41 Coding CPT Codes CPT Codes: ANESTH KNEE JOINT SURGERY - 98805 ([id number]) P2 - PATIENT W/MILD SYST DISEASE, QK - POLYSILICON PREPARATION WORKER 2-4 CNCRNT ANES PROC, QX - CUPOLA CHARGER SVC W/ MD MED DIRECTION
--- NOTE | 2025-02-04 11:49 | W.ANESCHARGE ---
Anesthesia Charges Start Date/Time Anesthesia Start Date: 02/04/25 Anesthesia Start Time: 11:37 Stop Date/Time Anesthesia Stop Date: 02/04/25 Anesthesia Stop Time: 12:41 Coding CPT Codes CPT Codes: ANESTH KNEE JOINT SURGERY - 44985 ([id number]) P2 - PATIENT W/MILD SYST DISEASE, QK - SENIOR CYBER SECURITY ANALYST 2-4 CNCRNT ANES PROC, QX - MANAGER BASKETBALL SVC W/ MD MED DIRECTION
[2025-02-04] MEDS: CEFAZOLIN 1 GM inj IVP (11:55)
--- NOTE | 2025-02-04 12:27 | PM.ORPRC ---
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 Operative intervention was recommended. The risks, benefits and expected outcomes were discussed in detail. These included but were not limited to: Infection, bleeding, injury to blood vessel or nerve, venous thromboembolism. All questions were answered to their satisfaction. PROCEDURE: Spinal anesthesia was administered. The patient was placed supine on the operating room table. The right lower extremity was prepped and draped in the usual sterile fashion. The limb was exsanguinated with the Jarrett bandage. The pneumatic tourniquet was inflated to 300 mmHg. A standard anterolateral portal was established. The arthroscope was introduced. The working portal was established anteromedially. Diagnostic arthroscopy was performed with findings as follows: The patellar component is intact with circumferential scarring surrounding it. The femoral component is normal, the tibial polyethylene is normal. The scarring posterior to the patellar tendon was debrided with the radiofrequency probe and shaver. A superolateral portal was placed. Then we aggressively debrided around the patellar component and posterior to the quads tendon with the shaver and radiofrequency probe. Arthroscopic instruments were removed, the portal sites were closed with a 3-0 nylon. Portals were injected with 0.25% Marcaine without epinephrine. A dry dressing was applied, the tourniquet was released. Sponge and needle counts were correct x 2. The patient tolerated the procedure well. There were no apparent complications. They were carefully transferred to the hospital bed and taken to the postanesthesia care unit in satisfactory condition. PLAN: The patient will be discharged to home. They may weightbear as tolerates. Range of motion will be unrestricted. They will follow up in the office in 2 weeks for a wound check and suture removal.
[2025-02-04] MEDS: BUPIVACAINE 0.25% 30 ML INJECTION (12:31)
--- NOTE | 2025-02-04 12:41 | P.ANES_ITS ---
Anesthesia Charges Start Date/Time Anesthesia Start Date: 02/04/25 Anesthesia Start Time: 11:37 Stop Date/Time Anesthesia Stop Date: 02/04/25 Anesthesia Stop Time: 12:41 Coding CPT Codes CPT Codes: ANESTH KNEE JOINT SURGERY - 12946 ([id number]) P2 - PATIENT W/MILD SYST DISEASE, QK - GRAPHIC ENGINEER 2-4 CNCRNT ANES PROC, QX - PROCESS CONTROL MANAGER SVC W/ MD MED DIRECTION
--- NOTE | 2025-02-04 12:41 | W.ANESCHARGE ---
Anesthesia Charges Start Date/Time Anesthesia Start Date: 02/04/25 Anesthesia Start Time: 11:37 Stop Date/Time Anesthesia Stop Date: 02/04/25 Anesthesia Stop Time: 12:41 Coding CPT Codes CPT Codes: ANESTH KNEE JOINT SURGERY - 11201 ([id number]) P2 - PATIENT W/MILD SYST DISEASE, QK - GRINDER MACHINE KNIFE SETTER 2-4 CNCRNT ANES PROC, QX - CORRESPONDENT SVC W/ MD MED DIRECTION
== END 2025-02-04 14:24 | disposition home or self-care (01) ==
PROVIDERS: PCP Internal Medicine; Visit Provider Orthopaedic Surgery
PROC: (CPT 29870; principal; 2025-02-04 11:30)
DX: M25.861 Other specified joint disorders, right knee (principal); Z96.651 Presence of right artificial knee joint
CPT/HCPCS: 29877; 01400; A9270; J0665; J0690; J1100; J2250; J2371; J2405; J2704; J3010; J7120